=== PATIENT | female | born 1965 | race Caucasian/White ===

== ENCOUNTER → 2020-11-16 08:36 | Outpatient (CLI) | payer OTHER, SELFPAY ==
--- NOTE | ~2020-11-16 | MMUS_ITS ---
EXAMINATION: MM diagnostic [facility] BI w meggan, US breast LT limited HISTORY: Palpable lump of the lower inner left breast TECHNIQUE: Craniocaudal, mediolateral, and mediolateral oblique 3-D tomosynthesis images of the breas ts were performed and synthetic 2-D images were generated. CAD analysis was submitted and interpreted . High resolution limited left breast ultrasound was performed. COMPARISON: 03/03/2015, 02/25/2014, 02/11/2014 BREAST PARENCHYMAL COMPOSITION: The breasts are almost entirely fatty. FINDINGS: MAMMOGRAPHIC FINDINGS: There is a 6 mm oval, equal density mass with indistinct margins of the lower breast seen only on the mediolateral oblique view near the area of the palpable abnormality. On the tomosynthesis images, th is appears to be within the skin. There are small stable masses of the breasts, considered benign giv en the lack of interval change. No suspicious calcification or architectural distortion are identifie d in either breast. ULTRASOUND: There is a 6 mm oval, circumscribed mass in the skin of the left breast in the area of palpable abnor mality which demonstrates a tract to the skin surface. IMPRESSION: 1. Sebaceous cyst of the left breast corresponding to the palpable abnormality of concern. No mammogr aphic or sonographic evidence of malignancy. 2. Recommend routine screening mammography in one year. BI-RADS Category 2: Benign finding(s). Reviewed, dictated and finalized at location A. IMPRESSION: 1. Sebaceous cyst of the left breast corresponding to the palpable abnormality of concern. No mammographic or sonographic evidence of malignancy. 2. Recommend routine screening mammography in one year. BI-RADS Category 2: Benign finding(s).
== END ==
PROVIDERS: PCP Family Medicine Sports Medicine; Visit Provider Family Medicine Sports Medicine
DX: N63.24 Unspecified lump in the left breast, lower inner quadrant (principal)
CPT/HCPCS: 76642; 77062; 77066; G0279

== ENCOUNTER → 2022-02-08 10:58 | Outpatient (CLI) | payer OTHER, SELFPAY ==
--- NOTE | ~2022-02-08 | MM_ITS ---
EXAMINATION: MM screening [facility] BI w meggan HISTORY: Screening mammogram TECHNIQUE: Craniocaudal and mediolateral oblique 3-D tomosynthesis images were obtained and synthetic 2-D images were generated. CAD analysis was submitted and interpreted. COMPARISON: 11/16/2020, 03/03/2015, 02/25/2014, 02/11/2014 BREAST PARENCHYMAL COMPOSITION: The breasts are almost entirely fatty. FINDINGS: Stable left breast masses are consistent with benign findings. There is no suspicious mass, calcification, or architectural distortion to suggest malignancy in either breast. There has been no suspicious interval change. IMPRESSION: 1. No mammographic evidence of malignancy. 2. Recommend routine screening mammography in one year. BI-RADS Category 2: Benign finding(s). Reviewed, dictated and finalized at location A.
== END ==
PROVIDERS: PCP Family Medicine Sports Medicine; Visit Provider Family Medicine Sports Medicine
DX: Z12.31 Encounter for screening mammogram for malignant neoplasm of breast (principal)
CPT/HCPCS: 77063; 77067

== ENCOUNTER 2022-09-02 10:53 | Emergency (ER) | payer OTHER, SELFPAY ==
[2022-09-02 11:04] VITALS: BP 126/89; PULSE 83; RESP 18; TEMP 36.7; O2SAT 100
--- NOTE | 2022-09-02 11:14 | ED.URI ---
HPI - URI/Sore Throat General Chief Complaint: Upper Respiratory Infection Stated Complaint: Sore Throat/Cough Time Seen by Provider: 09/02/22 11:14 History of Present Illness HPI Narrative: 56 y/o female presented for c/o sore throat and nonproductive cough for 3 days. Reports intermittent sinus congestion and drainage, and fever up to 100. Endorses sick contact with strep. Denies shortness of breath, wheezing, nausea, vomiting, diarrhea. Not taking anything for symptoms. Related Data Home Medications Medication Instructions Recorded Confirmed amlodipine 5 mg tablet mg 09/02/22 citalopram 10 mg tablet mg 09/02/22 dapagliflozin 10 mg tablet mg 09/02/22 (Farxiga) glimepiride 4 mg tablet mg 09/02/22 metformin 500 mg tablet mg 09/02/22 simvastatin 40 mg tablet mg 09/02/22 Allergies Allergy/AdvReac Type Severity Reaction Status Date / Time codeine AdvReac Vomiting Verified 09/02/22 11:03 Review of Systems Review of Systems: CONSTITUTIONAL: Denies body aches, chills, or sweats. EYES: Denies visual changes, redness, or discharge. ENT: Reports rhinorrhea, congestion, denies otalgia. CARDIOVASCULAR: Denies chest pain, palpitations, or edema. RESPIRATORY: Denies dyspnea. GASTROINTESTINAL: Denies abdominal pain, nausea, vomiting, or diarrhea. SKIN: Denies rash, itching, or wounds. MUSCULOSKELETAL: Denies back pain, joint pain, or myalgia. NEUROLOGIC: Denies headache Exam Narrative: GENERAL: Mildly Ill-appearing, no acute distress. EYES: conjunctivae clear ENT: Mucous membranes moist. TMs pearly jung with normal light reflex bilaterally; no tragal tenderness. Oropharynx mildly erythematous without lesions. Tonsils without exudate. No drooling, no hoarseness, no trismus, uvula midline. No tripod positioning, hot potato voice, or soft palate swelling. NECK: Supple. No lymphadenopathy CHEST: Clear to auscultation, breath sounds equal. No respiratory distress, speaks in full sentences. HEART: Regular rate and rhythm. No murmur heard. SKIN: Warm, dry, no rash. NEURO: Alert and oriented x3. Course Course Emergency Course: Patient is aware of diagnosis, understands and agrees to treatment plan. Anticipatory guidance given. Patient agrees to follow-up as directed and is aware of reasons to seek care at the emergency department. Portions of this record may have been created with voice recognition software Level of Care: Express Care Visit Vital Signs Vital signs: Vital Signs Temperature 98.1 F 09/02/22 11:04 Pulse Rate 83 09/02/22 11:04 Respiratory Rate 18 09/02/22 11:04 Blood Pressure 126/89 09/02/22 11:04 Pulse Oximetry 100 09/02/22 11:04 Oxygen Delivery Room Air 09/02/22 11:04 Temperature 98.1 F 09/02/22 11:04 Pulse Rate 83 09/02/22 11:04 Respiratory Rate 18 09/02/22 11:04 Blood Pressure 126/89 09/02/22 11:04 Pulse Oximetry 100 09/02/22 11:04 Oxygen Delivery Room Air 09/02/22 11:04 MDM - URI/Sore Throat MDM Narrative Medical decision making narrative: strep result reviewed with pt. Advise supportive treatments. Patient is appropriate for outpatient treatment and follow-up. Differential Diagnosis Differential diagnosis: Likely upper respiratory infection, viral infection and pharyngitis Lab Data Labs: Strep Screen Presumptive Negative *(Reference Range: Negative)* Discharge Plan Discharge Clinical Impression: Upper respiratory infection Patient Disposition: Home, Self-Care Condition: Stable Instructions: Antibiotic Form, Pharyngitis (ED) Additional Instructions: Rapid strep swab was negative today You will be notified in a few days if the culture comes back positive for strep, and appropriate antibiotics will be called in at that time. if symptoms are due to a viral illness, it is not treated with antibiotics. Viral symptoms can be present for up to 10-14 days.
== END 2022-09-02 11:35 | disposition home or self-care (01) ==
PROVIDERS: Emergency Provider Nurse Practitioner Family; PCP Family Medicine Sports Medicine
DX: J06.9 Acute upper respiratory infection, unspecified (principal)
CPT/HCPCS: 87081; 87880; 99213; G0463

== ENCOUNTER → 2023-05-02 09:59 | Outpatient (CLI) | payer OTHER, SELFPAY ==
--- NOTE | ~2023-05-02 | MM_ITS ---
EXAMINATION: MM screening [facility] BI w meggan HISTORY: Screening mammogram TECHNIQUE: Craniocaudal and mediolateral oblique 3-D tomosynthesis images were obtained and synthetic 2-D images were generated. CAD analysis was submitted and interpreted. COMPARISON: 02/08/2022 11/16/2020, 03/13/2015 BREAST PARENCHYMAL COMPOSITION: The breasts are almost entirely fatty. FINDINGS: Again noted are stable left breast masses, considered benign given the lack of interval rah nge. No suspicious mass, calcification, or architectural distortion are identified in either breast t o suggest malignancy. There has been no suspicious interval change. IMPRESSION: 1. No mammographic evidence of malignancy. 2. Recommend routine screening mammography in one year. BI-RADS Category 2: Benign finding(s). Reviewed, dictated and finalized at location A.
== END ==
PROVIDERS: PCP Family Medicine Sports Medicine; Visit Provider Family Medicine Sports Medicine
DX: Z12.31 Encounter for screening mammogram for malignant neoplasm of breast (principal)
CPT/HCPCS: 77063; 77067